=== PATIENT | male | born 1985 | race African-American/Black ===

== ENCOUNTER 2017-05-13 09:50 | Emergency (ER) | payer BC ==
--- NOTE | 2017-05-13 10:38 | UC ---
Dental HPI - HPI Summary HPI Summary: Pt presents with throbbing dental pain. Pt states part of filling fell out 10 days ago and pt with progressive dental pain increasing x 2-3 days. Pt states feels tooth throbbing.No fevers, chills. no ear pain. No difficulty with swallowing. Pt has been taking motrin 800mg every 4 hours with temp relief. No trauma. 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 Onset/Duration: Gradual Onset Severity: Moderate Pain Intensity: 7 Aggravating Factor(s): Cold, Chewing - Allergies/Home Medications Allergies/Adverse Reactions: Allergies Allergy/AdvReac Type Severity Reaction Status Date / Time No Known Allergies Allergy Verified 05/13/17 10:33 Home Medications: Home Medications Ibuprofen TAB* [Advil TAB*] 800 mg PO Q4H PRN MDD 2400mg 05/13/17 [History Confirmed 05/13/17] PMH/Surg Hx/FS Hx/Imm Hx Previously Healthy: Yes - Surgical History Surgical History: None - Family History Known Family History: Positive: Unknown, Other - Denies FMh low back strain - Social History Alcohol Use: Occasionally Substance Use Type: None Smoking Status (MU): Never Smoked Tobacco - Immunization History Most Recent Influenza Vaccination: Not the Season Review of Systems Constitutional: Negative ENT: Dental Pain Respiratory: Negative All Other Systems Reviewed And Are Negative: Yes Physical Exam Triage Information Reviewed: Yes Appearance: Well-Appearing, No Pain Distress, Well-Nourished Vital Signs: Initial Vital Signs Temp 98.5 F 05/13/17 10:30 Pulse 80 05/13/17 10:30 Resp 16 05/13/17 10:30 BP 122/86 05/13/17 10:30 Pulse Ox 100 05/13/17 10:30 Vital Signs Reviewed: Yes Eye Exam: Normal Eyes: Positive: Conjunctiva Clear. Negative: Discharge ENT: Positive: Hearing grossly normal, Pharynx normal, TMs normal Dental: Positive: Percussion Tenderness @, Other: - + #27 pt with partially missing filling + TTP buccal gumline at tooth. mild erythema no discharge No fluctuance no intraoral edema Neck exam: Normal Neck: Positive: Supple, Nontender, No Lymphadenopathy Respiratory Exam: Normal Respiratory: Positive: Normal breath sounds, No respiratory distress, No accessory muscle use Cardiovascular Exam: Normal Cardiovascular: Positive: RRR, No Murmur, Pulses Normal Musculoskeletal Exam: Normal Neurological Exam: Normal Psychological Exam: Normal Skin Exam: Normal Dental Complaint Course/Dx - Course Course Of Treatment: pt with broken filling #27. + TTP with mild erythema. no discharge. pt with dental appt next week. will give Rx penvk. reviewed motrin /apap. viscous lidocaine prn. return precautions discussed - Differential Dx/Diagnosis Provider Diagnoses: dental pain Discharge - Discharge Plan Condition: Stable Disposition: HOME Prescriptions: Lidocaine 2% VISCOUS* 5 ml PO Q4HR PRN #100 btl PRN Reason: Pain Penicillin VK TAB* [Penicillin VK 250 mg Tab*] 500 mg PO TID #21 tab Patient Education Materials: Toothache (ED) Referrals: Non Staff,Doctor [Primary Care Provider] - Additional Instructions: - take antibiotics as prescribed until gone - alternate ibuprofen (advil, motrin)600mg and tylenol every 3 hours for pain. Take with food - Swish and spit with warm salt water 2-3 times a day - okay to put lidocaine (numbing jelly) on your tooth every 4 hours as needed - keep your dental appointment as scheduled next week - contact your dentist or return here with any questions or concerns
[2017-05-13 10:41] VITALS: BP 122/86
[2017-05-13] MEDS ORDERED: Acetaminophen TAB* 325 MG PO ONE (10:52)
--- NOTE | 2017-05-14 07:22 | UC ---
Progress - Progress Note Progress Note: will ERx Hydrocodon/Tylenol take one tab every 6 hrs as needed for pain follow up with his dentist joao
== END 2017-05-13 11:05 | disposition home or self-care (01) ==
LOC: UCCORT 09:50
DX: K08.89 Other specified disorders of teeth and supporting structures (principal)
CPT/HCPCS: 99212; A9270-GY; G0463

== ENCOUNTER 2019-04-19 10:16 | Emergency (ER) | payer BC ==
[2019-04-19 10:41] VITALS: BP 140/86
--- NOTE | 2019-04-19 11:23 | UC ---
Skin Complaint HPI - HPI Summary HPI Summary: Pt presents with red, raised, "itchy" rash that began two days ago on his right side upper back and bilateral arms. Pt was prescribed amoxcillin for strep throat last week and stopped taking it after 5 days. - History of Current Complaint Chief Complaint: UCSkin Time Seen by Provider: 04/19/19 11:16 Stated Complaint: SKIN COMPLAINT Hx Obtained From: Patient Onset/Duration: Sudden Onset, Lasting Days, Still Present Skin Exposure Onset/Duration: Days Ago Timing: Constant Onset Severity: Mild Current Severity: Mild Pain Intensity: 0 Location: Generalized - upper back and bilateral arms Character: Pruritus, Redness, Raised Aggravating Factor(s): Touch Alleviating Factor(s): Nothing Associated Signs & Symptoms: Positive: Rash Related History: Recent change in medication - Allergy/Home Medications Allergies/Adverse Reactions: Allergies Allergy/AdvReac Type Severity Reaction Status Date / Time No Known Allergies Allergy Verified 04/19/19 10:41 PMH/Surg Hx/FS Hx/Imm Hx Previously Healthy: Yes - Surgical History Surgical History: None - Family History Known Family History: Positive: Unknown, Other - Denies FMh low back strain - Social History Occupation: Employed Full-time Lives: Alone Alcohol Use: Weekly Substance Use Type: None Smoking Status (MU): Never Smoked Tobacco Have You Smoked in the Last Year: No - Immunization History Most Recent Influenza Vaccination: Not the 2016/2017 Season Vaccination Up to Date: Yes Review of Systems All Other Systems Reviewed And Are Negative: Yes Constitutional: Positive: Negative Skin: Positive: Rash Eyes: Positive: Negative ENT: Positive: Negative Respiratory: Positive: Negative Cardiovascular: Positive: Negative Gastrointestinal: Positive: Negative Genitourinary: Positive: Negative Motor: Positive: Negative Neurovascular: Positive: Negative Musculoskeletal: Positive: Negative Neurological: Positive: Negative Psychological: Positive: Negative Is Patient Immunocompromised?: No Physical Exam Triage Information Reviewed: Yes Appearance: Well-Appearing Vital Signs: Initial Vital Signs Temp 97.9 F 04/19/19 10:33 Pulse 86 04/19/19 10:33 Resp 16 04/19/19 10:33 BP 140/86 04/19/19 10:33 Pulse Ox 100 04/19/19 10:33 Vital Signs Reviewed: Yes Eye Exam: Normal ENT: Positive: Hearing grossly normal Dental Exam: Normal Neck exam: Normal Respiratory Exam: Normal Respiratory: Positive: No respiratory distress Musculoskeletal Exam: Normal Neurological Exam: Normal Psychological Exam: Normal Skin: Positive: Rashes - confluent, red raised right upper back. Pt c/o of rash being pruritic Course/Dx - Differential Diagnoses - Skin Complaint Differential Diagnoses: Contact Dermatitis, Drug Rash, Urticaria - Diagnoses Provider Diagnosis: Contact dermatitis Discharge ED - Sign-Out/Discharge Documenting (check all that apply): Patient Departure All imaging exams completed and their final reports reviewed: No Studies - Discharge Plan Condition: Stable Disposition: HOME Prescriptions: Cetirizine* [ZyrTEC 10 MG TAB*] 10 mg PO DAILY #7 tab predniSONE TAB* [Deltasone 20 MG TAB*] 20 mg PO DAILY #4 tab Patient Education Materials: Contact Dermatitis (ED) Referrals: [facility] [place] [facility] [place] [facility] [Outside] No Primary Care Phys,NOPCP [Primary Care Provider] - - Billing Disposition and Condition Condition: STABLE Disposition: Home
== END 2019-04-19 11:32 | disposition home or self-care (01) ==
LOC: UCCORT 10:16
DX: L25.9 Unspecified contact dermatitis, unspecified cause (principal)
CPT/HCPCS: 99212; G0463

== ENCOUNTER 2019-11-19 10:50 | Emergency (ER) | payer BC ==
[2019-11-19] MEDS ORDERED: NS 0.9% 1000 ML** 1,000 ML IV ONE (11:06)
[2019-11-19] MEDS ORDERED: Ondansetron INJ* 2 MG/ML VIAL IV ONE (11:06)
[2019-11-19 11:38] LABS: ABS Lymphocytes 0.8 10^3/ul (1.0-4.8); ABS Monocytes 0.2 10^3/ul (0-0.8); ABS Neutrophils 1.5 10^3/ul (1.5-7.7); Hematocrit 46 % (42-52); Hemoglobin 15.2 g/dL (14.0-18.0); Lymphocyte % 31.1 %; Mean Corpuscular HGB Conc 33 g/dL (31-36); Mean Corpuscular Hemoglobin 26 pg (27-31); Mean Corpuscular Volume 78 fL (80-94); Mean Platelet Volume 8.5 fL (7.4-10.4); Platelet Count 151 10^3/uL (150-450); Red Blood Count 5.93 10^6 /uL (4.18-5.48); Red Cell Distribution Width 14 % (10-15); White Blood Count 2.5 10^3/uL (3.5-10.8)
[2019-11-19 11:56] LABS: Albumin 3.8 g/dL (3.2-5.2); Albumin/Globulin Ratio 1.3 (1-3); BUN/Creatinine Ratio 6.3 (8-20); C Reactive Protein 29.4 mg/L (<8.01); Calcium 8.4 mg/dL (8.6-10.3); EGFR African American 91.9 (>60); Potassium 3.7 mmol/L (3.5-5.0); Total Bilirubin 0.4 mg/dL (0.2-1.0); Total Protein 6.8 g/dL (6.4-8.9)
--- NOTE | 2019-11-19 12:22 | ED ---
HPI Febrile Illness - HPI Summary HPI Summary: Patient is a 34-year-old male who presents emergency department for ongoing fever, nausea and vomiting. Patient tested positive for COVID19 virus on November 11. Patient concerned because he is still running a fever and developed nausea and vomiting today. Patient states he has been able to keep down some by mouth fluids. He denies cough or shortness of breath. Has no past medical history. Those are moderate in severity. No current modifying factors. - History of Current Complaint Chief Complaint: EDFever Time Seen by Provider: 11/19/19 10:55 Hx Obtained From: Patient Pain Intensity: 7 - Allergy/Home Medications Allergies/Adverse Reactions: Allergies Allergy/AdvReac Type Severity Reaction Status Date / Time No Known Allergies Allergy Verified 04/19/19 10:41 Home Medications: Home Medications Cetirizine* [ZyrTEC 10 MG TAB*] 10 mg PO DAILY #7 tab 04/19/19 [Rx] predniSONE 20 mg TAB [Deltasone 20 MG TAB*] 20 mg PO DAILY #4 tab 04/19/19 [Rx] Ondansetron TAB* [Zofran 4 MG Tab*] 4 mg PO Q6H PRN #12 tab 11/19/19 [Rx] PMH/Surg Hx/FS Hx/Imm Hx Previously Healthy: Yes Respiratory History: Denies: Hx Asthma Psychiatric History: Denies: Hx Anxiety Infectious Disease History: No Infectious Disease History: Reports: Traveled Outside the in Last 30 Days - cruise to [place] and [facility] - Family History Known Family History: Positive: Unknown, Other - Denies FMh low back strain - Social History Occupation: Employed Full-time Lives: With Family Alcohol Use: Occasionally Substance Use Type: Reports: None Smoking Status (MU): Never Smoked Tobacco Have You Smoked in the Last Year: No Review of Systems Positive: Fever, Chills Cardiovascular: Negative Respiratory: Negative Positive: Vomiting, Nausea. Negative: Abdominal Pain, Diarrhea Skin: Negative Neurological/Mental Status: Negative All Other Systems Reviewed And Are Negative: Yes Physical Exam Triage Information Reviewed: Yes Vital Signs On Initial Exam: Initial Vitals Pulse BP Pulse Ox 104 125/89 92 11/19/19 11:03 11/19/19 11:03 11/19/19 11:03 Vital Signs Reviewed: Yes Appearance: Positive: Well-Appearing - Patient sitting up in bed in no acute distress. Speaking in full sentences. Nontoxic. Skin: Positive: Warm, Dry Head/Face: Positive: Normal Head/Face Inspection Eyes: Positive: Normal, EOMI Neck: Positive: Supple Musculoskeletal: Positive: Normal, Strength/ROM Intact Neurological: Positive: Normal, Alert, Oriented to Person Place, Time, CN Intact II-III Psychiatric: Positive: Affect/Mood Appropriate Procedures - Sedation Patient Received Moderate/Deep Sedation with Procedure: No Diagnostics - Vital Signs Vital Signs Temp Pulse Resp BP Pulse Ox 11/19/19 11:06 98.1 F 107 27 125/89 92 11/19/19 11:04 104 92 11/19/19 11:03 104 125/89 92 - Laboratory Lab Results: Lab Results 11/19/19 11/19/19 Range/Units 11:23 11:23 WBC 2.5 L (3.5-10.8) 10^3/uL RBC 5.93 H (4.18-5.48) 10^6 /uL Hgb 15.2 (14.0-18.0) g/dL Hct 46 (42-52) % MCV 78 L (80-94) fL MCH 26 L (27-31) pg MCHC 33 (31-36) g/dL RDW 14 (10-15) % Plt Count 151 (150-450) 10^3/uL MPV 8.5 (7.4-10.4) fL Neut % (Auto) 61.5 % Lymph % (Auto) 31.1 % Wells % (Auto) 7.2 % Eos % (Auto) 0.0 % Baso % (Auto) 0.2 % Absolute Neuts (auto) 1.5 (1.5-7.7) 10^3/ul Absolute Lymphs (auto) 0.8 L (1.0-4.8) 10^3/ul Absolute Monos (auto) 0.2 (0-0.8) 10^3/ul Absolute Eos (auto) 0.0 (0-0.6) 10^3/ul Absolute Basos (auto) 0.0 (0-0.2) 10^3/ul Absolute Nucleated RBC 0.0 10^3/ul Nucleated RBC % 0.0 Sodium 133 L (135-145) mmol/L Potassium 3.7 (3.5-5.0) mmol/L Chloride 97 L (101-111) mmol/L Carbon Dioxide 26 (22-32) mmol/L Anion Gap 10 (2-11) mmol/L BUN 7 (6-24) mg/dL Creatinine 1.12 (0.67-1.17) mg/dL Est GFR ( Amer) 91.9 (>60) Est GFR (Non-Af Amer) 76.0 (>60) BUN/Creatinine Ratio 6.3 L (8-20) Glucose 107 H (70-100) mg/dL Calcium 8.4 L (8.6-10.3) mg/dL Total Bilirubin 0.40 (0.2-1.0) mg/dL AST 102 H (13-39) U/L ALT 90 H (7-52) U/L Alkaline Phosphatase 49 (34-104) U/L C-Reactive Protein 29.40 H (<8.01) mg/L Total Protein 6.8 (6.4-8.9) g/dL Albumin 3.8 (3.2-5.2) g/dL Globulin 3.0 (2-4) g/dL Albumin/Globulin Ratio 1.3 (1-3) Result Diagrams: 11/19/19 11:23 11/19/19 11:23 Lab Statement: Any lab studies that have been ordered have been reviewed, and results considered in the medical decision making process. Course/Dx - Course Course Of Treatment: Patient with known coronavirus. Low-grade fever. Stable blood pressure. Mildly tachycardic. Oxygen saturation are 94% room air. Patient denies shortness of breath. Patient given IV fluids. Labs show leukocytosis and mildly elevated liver enzymes. . CXR per radiology: IMPRESSION: #. The constellation of findings favors bronchopneumonia given the clinical context. Tachycardia resolved after fluids. Patient tolerating by mouth fluids. We'll discharge him home to continue supportive supportive care. Zofran prescribed if needed. Continue tylenol. Continue isolation will follow up with health department return to the ER if symptoms change or worsen. - Febrile Illness Differential Diagnoses: Bacteremia, Pneumonia, Sepsis - Diagnoses Provider Diagnoses: COVID-19 virus infection Discharge ED - Sign-Out/Discharge Documenting (check all that apply): Patient Departure - Discharge Plan Condition: Improved Disposition: HOME Prescriptions: Ondansetron TAB* [Zofran 4 MG Tab*] 4 mg PO Q6H PRN #12 tab PRN Reason: Nausea Forms: COVID-19 Tested & Isolation Referrals: Doris Vargas NP [Primary Care Provider] - Additional Instructions: Follow up with your PCP and health department Nausea medication as directed Increase fluids Continue isolation as directed Tylenol for fever as directed Return to ER if symptoms change or worsen - Billing Disposition and Condition Condition: IMPROVED Disposition: Home
[2019-11-19 13:58] VITALS: BP 114/81
== END 2019-11-19 13:58 | disposition home or self-care (01) ==
LOC: ED 10:50
DX: U07.1 COVID-19 (principal); R11.2 Nausea with vomiting, unspecified; Z79.52 Long term (current) use of systemic steroids
CPT/HCPCS: 36415; 71045; 80053; 85025; 86140; 99283